=== PATIENT | male | born 1990 | race Two or more races ===

== ENCOUNTER 2019-05-19 17:58 | Inpatient (IN) | payer MEDICAID ==
[~2019-05-19] VITALS: Ht 165.1 cm; Wt 69.9 kg
[2019-05-19] MEDS ORDERED: SODIUM CHLORIDE 0.9% 1,000 ML IV ONE (18:19)
[2019-05-19] MEDS ORDERED: ONDANSETRON HCL 4MG/2ML INJ IV ONE (18:30)
[2019-05-19 18:57] LABS: HEMATOCRIT. 41.6 % (42.0-52.0); HEMOGLOBIN. 13.9 g/dL (14.0-18.0); MEAN CORPUSCULAR HEMOGLOBIN 32.3 pg (28.0-32.0); MEAN CORPUSCULAR VOLUME 96.5 fL (80.0-94.0); PLATELET 194 x1000/uL (130-400); RED BLOOD CELL COUNT 4.31 mill/uL (4.7-6.1); RED CELL DISTRIBUTION WIDTH 13.8 % (11.6-14.6)
[2019-05-19 18:59] LABS: CHLORIDE 105 mEq/L (98-107)
[2019-05-19 19:04] LABS: ETHANOL BLOOD 16 mg/dL
[2019-05-19 19:15] LABS: VALPROIC ACID < 3.0 ug/mL (50-100)
[2019-05-19 19:32] LABS: PLATELET ESTIMATE NORMAL
[2019-05-19] MEDS ORDERED: FOLIC ACID 1 MG, THIAMINE HCL 100 MG, MVI, ADULT NO.1 10 ML in DEXTROSE 5% WATER 1,000 ML IV ONE ×4 (20:15)
[2019-05-19] MEDS ORDERED: CEFTRIAXONE 2 G PREMIX 50 ML IV ONE (21:00)
[2019-05-19] MEDS ORDERED: DEXT 5% IV SCH (21:00)
[2019-05-19] MEDS ORDERED: VANCOMYCIN 1 G PREMIX 200 ML IV SCH (21:00)
[2019-05-19] MEDS ORDERED: ACYCLOVIR IV SCH (21:00)
[2019-05-19] MEDS ORDERED: WATER IV SCH (21:00)
[2019-05-19 21:11] LABS: CREATINE KINASE 1816 IU/L (39-308)
[2019-05-19] MEDS ORDERED: LIDOCAINE HCL/EPINEPHRINE 1%-EPI 1:100,000 20 ML VIAL INFIL ONE (21:15)
[2019-05-19 21:26] LABS: CLARITY URINE CLEAR (CLEAR); COLOR URINE YELLOW (YELLOW); KETONES URINE TRACE (NEGATIVE); LEUKOCYTE ESTERASE URINE NEGATIVE (NEGATIVE); NITRITE URINE NEGATIVE (NEGATIVE); OCCULT BLOOD URINE NEGATIVE (NEGATIVE); PH URINE 6.5 (4.5-8.0); PROTEIN URINE 1+ (NEGATIVE); SPECIFIC GRAVITY URINE 1.016 (1.005-1.030); UROBILINOGEN URINE 0.2 E.U./dL (0.2-1.0)
[2019-05-19 21:49] LABS: *AMPHETAMINES SCREEN URINE PRESUMTIVE POSITIVE (NEGATIVE); *BARBITURATES SCREEN URINE NEGATIVE (NEGATIVE); *BENZODIAZEPINES SCREEN URINE NEGATIVE (NEGATIVE); *COCAINE SCREEN URINE NEGATIVE (NEGATIVE); METHADONE URINE SCREEN NEGATIVE (NEGATIVE); OPIATES URINE SCREEN NEGATIVE (NEGATIVE)
[2019-05-19 21:50] LABS: CANNABINOID URINE SCREEN NEGATIVE (NEGATIVE); PHENCYCLIDINE URINE SCREEN NEGATIVE (NEGATIVE)
[2019-05-19] MEDS ORDERED: CHLORDIAZEPOXIDE 25MG CAPSULE PO SCH (22:00)
[2019-05-19] MEDS ORDERED: MAGNESIUM/ALUMINUM HYDROXIDE/SIMETHICONE 30ML UDC PO PRN (22:30)
[2019-05-19] MEDS ORDERED: CLONIDINE 0.1MG TABLET PO PRN (22:30)
[2019-05-19] MEDS ORDERED: LORAZEPAM 2MG/ML CPJ IV PRN (22:30)
[2019-05-19] MEDS ORDERED: SODIUM CHLORIDE 0.9% 1,000 ML IV SCH (22:30)
[2019-05-19] MEDS ORDERED: ACETAMINOPHEN 325MG TABLET PO PRN (23:34)
[2019-05-20 03:32] VITALS: BP 138/95
[2019-05-20] MEDS ORDERED: INFLUENZA VIRUS VACCINE(AFLURIA) 0.5ML SYR IM ONE (06:00)
[2019-05-20 06:49] LABS: CHLORIDE 101 mEq/L (98-107)
[2019-05-20 06:54] LABS: PHOSPHORUS 2.8 mg/dL (2.5-4.9)
[2019-05-20 07:10] LABS: BASOPHILS % 0.4 % (0.0-2.0); EOSINOPHILS % 0.2 % (0.0-5.0); HEMATOCRIT. 38.9 % (42.0-52.0); HEMOGLOBIN. 13.1 g/dL (14.0-18.0); LYMPHOCYTES % 8.2 % (20.0-50.0); MEAN CORPUSCULAR HEMOGLOBIN 32.6 pg (28.0-32.0); MEAN CORPUSCULAR VOLUME 97.1 fL (80.0-94.0); MEAN PLATELET VOLUME 8.4 fl (7.4-10.4); MONOCYTES % 8.4 % (2.0-8.0); NEUTROPHILS % 82.8 % (40.0-76.0); PLATELET 175 x1000/uL (130-400); RED CELL DISTRIBUTION WIDTH 13.9 % (11.6-14.6)
[2019-05-20 07:42] LABS: CREATINE KINASE 6981 IU/L (39-308)
[2019-05-20 08:00] VITALS: BP 128/79
[2019-05-20] MEDS: ENOXAPARIN 40MG/0.4ML SYR SUBCUT SCH (10:05)
[2019-05-20] MEDS: THIAMINE HCL 100MG TABLET PO SCH (10:06)
[2019-05-20] MEDS: MULTIVITAMINS,THER W-MINERALS TABLET PO SCH (10:06)
[2019-05-20] MEDS: LEVETIRACETAM 500MG TABLET PO SCH ×2 (10:06→22:41)
[2019-05-20] MEDS: FOLIC ACID 1MG TABLET PO SCH (10:06)
[2019-05-20] MEDS: SODIUM CHLORIDE 0.45% 1,000 ML IV SCH ×3 (10:09→22:42)
[2019-05-20 12:00] VITALS: BP 124/80
[2019-05-20 14:06] LABS: CREATINE KINASE 6987 IU/L (39-308)
[2019-05-20 16:00] VITALS: BP 130/89
[2019-05-20] MEDS: ACETAMINOPHEN 325MG TABLET PO PRN (16:30)
[2019-05-20] MEDS: CHLORDIAZEPOXIDE 25MG CAPSULE PO SCH ×2 (16:30→22:41)
[2019-05-20 19:16] LABS: CREATINE KINASE 6635 IU/L (39-308)
[2019-05-20 20:00] VITALS: BP 130/77
[2019-05-20] MEDS ORDERED: CEFTRIAXONE 1 G PREMIX 50 ML IV SCH (21:00)
[2019-05-21] VITALS: BP 137/85
[2019-05-21 01:28] LABS: CREATINE KINASE 6238 IU/L (39-308)
[2019-05-21 04:00] VITALS: BP 136/85
[2019-05-21] MEDS: SODIUM CHLORIDE 0.45% 1,000 ML IV SCH ×3 (06:12→21:58)
[2019-05-21] MEDS: CHLORDIAZEPOXIDE 25MG CAPSULE PO SCH ×3 (06:14→21:57)
[2019-05-21 07:23] LABS: BASOPHILS % 0.6 % (0.0-2.0); EOSINOPHILS % 7.5 % (0.0-5.0); HEMATOCRIT. 39.1 % (42.0-52.0); HEMOGLOBIN. 13.8 g/dL (14.0-18.0); LYMPHOCYTES % 12.6 % (20.0-50.0); MEAN CORPUSCULAR HEMOGLOBIN 33.9 pg (28.0-32.0); MEAN PLATELET VOLUME 8.6 fl (7.4-10.4); MONOCYTES % 10.9 % (2.0-8.0); NEUTROPHILS % 68.4 % (40.0-76.0); PLATELET 172 x1000/uL (130-400); RED BLOOD CELL COUNT 4.07 mill/uL (4.7-6.1); RED CELL DISTRIBUTION WIDTH 13.6 % (11.6-14.6)
[2019-05-21 08:00] VITALS: BP 133/72
[2019-05-21 08:01] LABS: CHLORIDE 105 mEq/L (98-107)
[2019-05-21 08:26] LABS: CREATINE KINASE 5021 IU/L (39-308)
[2019-05-21] MEDS ORDERED: INFLUENZA VIRUS VACCINE(AFLURIA) 0.5ML SYR IM ONE (09:00)
[2019-05-21] MEDS: THIAMINE HCL 100MG TABLET PO SCH (09:40)
[2019-05-21] MEDS: LEVETIRACETAM 500MG TABLET PO SCH ×2 (09:40→21:57)
[2019-05-21] MEDS: FOLIC ACID 1MG TABLET PO SCH (09:40)
[2019-05-21] MEDS: MULTIVITAMINS,THER W-MINERALS TABLET PO SCH (09:40)
[2019-05-21] MEDS: ENOXAPARIN 40MG/0.4ML SYR SUBCUT SCH (09:41)
[2019-05-21 11:55] LABS: CREATINE KINASE 4408 IU/L (39-308)
[2019-05-21 12:00] VITALS: BP 129/78
[2019-05-21 16:00] VITALS: BP 134/90
[2019-05-21 19:38] LABS: CREATINE KINASE 4523 IU/L (39-308)
[2019-05-21 20:00] VITALS: BP 127/81
[2019-05-22] VITALS: BP 131/81
[2019-05-22] MEDS: SODIUM CHLORIDE 0.45% 1,000 ML IV SCH ×4 (01:30→20:02)
[2019-05-22 04:00] VITALS: BP 138/73
[2019-05-22 06:13] LABS: CREATINE KINASE 4970 IU/L (39-308)
[2019-05-22] MEDS: CHLORDIAZEPOXIDE 25MG CAPSULE PO SCH ×3 (06:38→21:13)
[2019-05-22 08:00] VITALS: BP 107/55
[2019-05-22] MEDS: MULTIVITAMINS,THER W-MINERALS TABLET PO SCH (10:39)
[2019-05-22] MEDS: FOLIC ACID 1MG TABLET PO SCH (10:39)
[2019-05-22] MEDS: THIAMINE HCL 100MG TABLET PO SCH (10:39)
[2019-05-22] MEDS: ENOXAPARIN 40MG/0.4ML SYR SUBCUT SCH ×2 (10:40→10:42)
[2019-05-22 12:00] VITALS: BP 132/88
[2019-05-22] MEDS: CARBAMAZEPINE 200MG TABLET PO SCH ×2 (14:51→21:13)
[2019-05-22 16:00] VITALS: BP 127/81
[2019-05-22 20:00] VITALS: BP 126/83
[2019-05-23] VITALS (7 sets, daily range): BP systolic 110–142; BP diastolic 63–85
[2019-05-23] MEDS: SODIUM CHLORIDE 0.45% 1,000 ML IV SCH ×2 (02:31→09:39)
[2019-05-23 04:07] LABS: *HSV 1 DNA PCR Negative (Negative); *HSV 2 DNA PCR Negative (Negative)
[2019-05-23] MEDS: CHLORDIAZEPOXIDE 25MG CAPSULE PO SCH (05:43)
[2019-05-23 06:43] LABS: HEMATOCRIT. 42.2 % (42.0-52.0); HEMOGLOBIN. 14.3 g/dL (14.0-18.0); MEAN CORPUSCULAR HEMOGLOBIN 32.8 pg (28.0-32.0); MEAN CORPUSCULAR VOLUME 96.5 fL (80.0-94.0); MEAN PLATELET VOLUME 7.6 fl (7.4-10.4); PLATELET 228 x1000/uL (130-400); RED BLOOD CELL COUNT 4.37 mill/uL (4.7-6.1); RED CELL DISTRIBUTION WIDTH 13.8 % (11.6-14.6)
[2019-05-23 06:44] LABS: CHLORIDE 105 mEq/L (98-107)
[2019-05-23 07:18] LABS: CREATINE KINASE 4221 IU/L (39-308)
[2019-05-23] MEDS: CARBAMAZEPINE 200MG TABLET PO SCH (09:27)
[2019-05-23] MEDS: FOLIC ACID 1MG TABLET PO SCH (09:27)
[2019-05-23] MEDS: MULTIVITAMINS,THER W-MINERALS TABLET PO SCH (09:27)
[2019-05-23] MEDS: THIAMINE HCL 100MG TABLET PO SCH (09:27)
[2019-05-23] MEDS: ACETAMINOPHEN 325MG TABLET PO PRN (09:28)
[2019-05-24 04:05] LABS: PLATELET ESTIMATE NORMAL
== END 2019-05-23 16:30 | disposition home or self-care (01) | DRG 115 ==
LOC: EDBD 17:58 → ER 17:58 → EDBEDREQTM 20:58 → 7WST 22:51 → EDBEDREQTM 05-20 00:16 → EDBEDREQ 05-20 00:16 → ENRESERV 05-20 02:24
PROVIDERS: ADMIT Family Medicine Adult Medicine; ATTEND Family Medicine Adult Medicine
PROC: 009U3ZX Drainage of Spinal Canal, Percutaneous Approach, Diagnostic (ICD-10-PCS; principal; 2019-05-23)
DX: S02.92XA Unspecified fracture of facial bones, initial encounter for closed fracture (principal); M62.82 Rhabdomyolysis; E87.1 Hypo-osmolality and hyponatremia; G40.409 Other generalized epilepsy and epileptic syndromes, not intractable, without status epilepticus; E87.6 Hypokalemia; F15.10 Other stimulant abuse, uncomplicated; Y04.0XXA Assault by unarmed brawl or fight, initial encounter; S05.11XA Contusion of eyeball and orbital tissues, right eye, initial encounter; F10.20 Alcohol dependence, uncomplicated; E86.9 Volume depletion, unspecified; Z59.0 Homelessness; Y93.89 Activity, other specified; Y92.89 Other specified places as the place of occurrence of the external cause; Y99.8 Other external cause status
CPT/HCPCS: 36415; 70486; 71045; 80048; 80076; 80165; 80185; 80305; 80320; 81003; 82550; 83605; 83735; 84100; 84145; 84443; 84484; 87070; 87529; 90686; 93005; 93970; 96361; 96365; 96367; 96368; 96375; 99291; J0133; J0696; J1650; J2405; J3370; J3411; J3490; J7030; J7060; J7070; G0480

== ENCOUNTER 2019-07-09 01:43 | Emergency (ER) | payer MEDICAID ==
[~2019-07-09] VITALS: Ht 154.9 cm; Wt 65.0 kg
[2019-07-09 03:33] LABS: BASOPHILS % 0.4 % (0.0-2.0); EOSINOPHILS % 0.3 % (0.0-5.0); HEMATOCRIT. 42.1 % (42.0-52.0); HEMOGLOBIN. 14.2 g/dL (14.0-18.0); LYMPHOCYTES % 11.4 % (20.0-50.0); MEAN CORPUSCULAR HEMOGLOBIN 32.1 pg (28.0-32.0); MEAN CORPUSCULAR VOLUME 95.4 fL (80.0-94.0); MEAN PLATELET VOLUME 7.7 fl (7.4-10.4); MONOCYTES % 6.2 % (2.0-8.0); NEUTROPHILS % 81.7 % (40.0-76.0); PLATELET 263 x1000/uL (130-400); RED BLOOD CELL COUNT 4.42 mill/uL (4.7-6.1); RED CELL DISTRIBUTION WIDTH 13.9 % (11.6-14.6)
[2019-07-09 03:40] LABS: CHLORIDE 106 mEq/L (98-107)
[2019-07-09 03:42] LABS: PARTIAL THROMBOPLASTIN TIME 26.4 sec (23.4-31.0); PROTHROMBIN TIME 9.8 sec (9.6-11.0)
[2019-07-09] MEDS ORDERED: TETANUS, DIPHTHERIA, PERTUSSIS VAC/PF 0.5ML (>7YR OLD) IM ONE (06:00)
[2019-07-09] MEDS ORDERED: IOHEXOL-300 100 ML BOTTLE ONE (06:58)
[2019-07-10] MEDS ORDERED: ACETAMINOPHEN 500MG TABLET PO ONE (04:45)
[2019-07-10 12:35] VITALS: BP 122/76
== END 2019-07-10 12:35 | disposition home or self-care (01) ==
LOC: ER 01:43
DX: S82.832A Other fracture of upper and lower end of left fibula, initial encounter for closed fracture (principal); S22.048A Other fracture of fourth thoracic vertebra, initial encounter for closed fracture; S01.01XA Laceration without foreign body of scalp, initial encounter; M25.511 Pain in right shoulder; F10.129 Alcohol abuse with intoxication, unspecified; F12.10 Cannabis abuse, uncomplicated; W19.XXXA Unspecified fall, initial encounter; Y93.01 Activity, walking, marching and hiking; Y92.89 Other specified places as the place of occurrence of the external cause; Y99.8 Other external cause status; Y90.9 Presence of alcohol in blood, level not specified
CPT/HCPCS: 12002; 36415; 70450; 71045; 71260; 72125; 72128; 72131; 72170; 73030; 73590; 74177; 80053; 83690; 84484; 85025; 85610; 85730; 86850; 86900; 86901; 90471; 90715; 99284; L1830; Q9967; 12001